=== PATIENT | female | born 1995 ===

== ENCOUNTER 2018-10-29 22:04 | Emergency (ER) | payer SELFPAY ==
--- NOTE | 2018-10-29 22:42 | Emergency Department Report ---
Blank Doc - Documentation Documentation: 23 y.o. female presents with lower back pain from falling down the stairs at h ome. Reports falling down 8 steps and hit her back several times as she slide down the stairs. XR of L-spine and urine hCG ordered [facility] for evaluation
[2018-10-30 00:26] LABS: HCG Qualitative,Urine Negative (Negative)
--- NOTE | 2018-10-30 01:07 | XRay Report ---
FINAL REPORT PROCEDURE: XR SPINE LUMBOSACRAL 2-3V TECHNIQUE: Lumbar spine radiographs, including AP, lateral, and lumbosacral spot views. CPT 88212 HISTORY: low back pain COMPARISON: No prior studies are available for comparison. FINDINGS: Alignment: Normal. Vertebral body heights/Disk spaces: Normal. Fracture(s): None. Facets: Normal. Bone mineralization: Normal. IMPRESSION: Normal Examination.
[2018-10-30 01:38] VITALS: BP 108/63
[2018-10-30] MEDS ORDERED: TYLENOL PO ONE (02:08)
[2018-10-30] MEDS ORDERED: IBUPROFEN PO ONE ×2 (02:08→02:12)
[2018-10-30] MEDS ORDERED: TYLENOL ONE (02:12)
--- NOTE | 2018-10-30 02:19 | Emergency Department Report ---
ED Back Pain/Injury HPI - General Chief Complaint: Back Pain/Injury Stated Complaint: HIP INJURY Time Seen by Provider: 10/29/18 22:38 Source: patient Limitations: No Limitations - History of Present Illness Initial Comments: 23-year-old -[place] female presents from urgent department complaining of back pain after fall on stairs one day ago. States that she sustained some injuries to her back. I don't a fall landing sideways and on her blood tox was experiencing no numbness or tingling. She denies any saddle paresthesia. There is no urinary retention or loss of bowel or bladder control. MD Complaint: back pain, back injury -: Gradual Similar Symptoms Previously: No Place: home Radiation: none Severity: mild Quality: dull Consistency: constant Improves With: none Worsens With: none Context: fall Associated Symptoms: denies: confusion, weakness, chest pain, numbness, cough, fever/chills, constipation, headaches, rash, seizure, shortness of breath - Related Data Previous Rx's Medication Instructions Recorded Last Taken Type Ketorolac [Toradol] 10 mg PO Q6H PRN #15 tablet 10/30/18 Unknown Rx Methocarbamol [Robaxin] 750 mg PO Q8H PRN #21 tablet 10/30/18 Unknown Rx Allergies Allergy/AdvReac Type Severity Reaction Status Date / Time No Known Allergies Allergy Unverified 10/29/18 22:04 ED Review of Systems ROS: Stated complaint: HIP INJURY Other details as noted in HPI Constitutional: denies: chills, fever Eyes: denies: eye pain, eye discharge, vision change ENT: denies: ear pain, throat pain Respiratory: denies: cough, shortness of breath, wheezing Cardiovascular: denies: chest pain, palpitations Endocrine: no symptoms reported Gastrointestinal: denies: abdominal pain, nausea, diarrhea Genitourinary: denies: urgency, dysuria, discharge Musculoskeletal: back pain. denies: joint swelling, arthralgia Skin: denies: rash, lesions Neurological: denies: headache, weakness, paresthesias Psychiatric: denies: anxiety, depression Hematological/Lymphatic: denies: easy bleeding, easy bruising ED Past Medical Hx - Past Medical History Previous Medical History?: No - Surgical History Past Surgical History?: No - Social History Smoking Status: Never Smoker Substance Use Type: None - Medications Home Medications: Home Medications Medication Instructions Recorded Confirmed Last Taken Type Ketorolac [Toradol] 10 mg PO Q6H PRN #15 tablet 10/30/18 Unknown Rx Methocarbamol [Robaxin] 750 mg PO Q8H PRN #21 tablet 10/30/18 Unknown Rx ED Physical Exam - General Limitations: No Limitations General appearance: alert, in no apparent distress - Head Head exam: Present: atraumatic, normocephalic - Eye Eye exam: Present: normal appearance - ENT ENT exam: Present: mucous membranes moist - Neck Neck exam: Present: normal inspection - Respiratory Respiratory exam: Present: normal lung sounds bilaterally. Absent: respiratory distress - Cardiovascular Cardiovascular Exam: Present: regular rate, normal rhythm. Absent: systolic murmur, diastolic murmur, rubs, gallop - GI/Abdominal GI/Abdominal exam: Present: soft, normal bowel sounds - Extremities Exam Extremities exam: Present: normal inspection, full ROM - Back Exam Back exam: Present: normal inspection, tenderness, muscle spasm, paraspinal tenderness, other (straight leg raise is negative. Trae test is negative.). Absent: CVA tenderness (R), CVA tenderness (L), vertebral tenderness - Neurological Exam Neurological exam: Present: alert, oriented X3 - Psychiatric Psychiatric exam: Present: normal affect, normal mood - Skin Skin exam: Present: warm, dry, intact, normal color. Absent: rash ED Course Vital Signs 10/29/18 10/30/18 22:11 01:38 Temperature 99.6 F 98.7 F Pulse Rate 92 H 86 Respiratory 18 16 Rate Blood Pressure 110/58 108/63 [Right] O2 Sat by Pulse 97 99 Oximetry ED Medical Decision Making - Radiology Data Radiology results: report reviewed (x-ray of lumbar spine shows a normal exa mination, per radiology.) Critical care attestation.: If time is entered above; I have spent that time in minutes in the direct care of this critically ill patient, excluding procedure time. ED Disposition Clinical Impression: Back ache, Fall Disposition: - TO HOME OR SELFCARE Is pt being admited?: No Does the pt Need Aspirin: No Condition: Stable Instructions: Fall Prevention (ED), Arthralgia (ED), Muscle Spasm (ED), Lumbar Radiculopathy (ED), Acute Low Back Pain (ED) Referrals: DARIEL PIERCE DO [Primary Care Provider] - 3-5 Days
== END 2018-10-30 02:31 | disposition home or self-care (01) ==
LOC: ED 22:04
DX: M54.9 Dorsalgia, unspecified (principal)
CPT/HCPCS: 72100; 81025